=== PATIENT | male | born 1950 | race Caucasian/White ===

== ENCOUNTER 2024-03-22 10:29 | Outpatient (CLI) | payer MEDICARE, OTHER, SELFPAY ==
--- NOTE | ~2024-03-22 | PE_ITS ---
EXAMINATION: PET_PETPSMAST_PT DATE: 03/22/2024 13:16 INDICATION: Malignant neoplasm of the prostate TECHNIQUE: 5.337 mCi of Locametz Ga-68([id number]) was administered i.v. Low dose computed patricia ography (CT) images were acquired from the base of the brain to the base of the brain to the proximal thighs for attenuation correction and anatomic localization. Positron emission tomography (PET) imag es were acquired in the same distribution beginning 91 minutes after injection. Images including fuse d PET/CT images were reconstructed in axial, coronal, and sagittal planes. Automated exposure control technique was employed. The dose-length product was 1082.73mGy-cm. COMPARISON: None FINDINGS: Head/neck: Typical pattern of symmetric physiologic increased activity in the lacrimal, parotid and submandibula r glands as well as along the mucosa of the nasal and oral cavities, pharynx and hypopharynx. No path ologically enlarged cervical lymphadenopathy or suspicious foci of increased uptake in the visualized head or neck. Chest: There is dependent atelectasis in the bilateral lower lobes. No suspicious pulmonary nodules, pneumon ia, pulmonary edema or pleural effusion. Heart size is normal. Small pericardial effusion. Minimal at herosclerotic coronary artery calcification. Thoracic aorta is normal in caliber. No pathologically e nlarged or PSMA avid thoracic lymphadenopathy. Abdomen/pelvis/proximal thighs: Physiologic renal accumulation and excretion of activity in the kidneys, bladder and along portions o f ureters. 4.8 cm photopenic low-attenuation left renal cyst. There is heterogeneous mild uptake in t he prostate with maximal SUV of 4.4 likely representing the reported biopsy-proven primary prostate c ancer. Normal degree and slightly heterogenous pattern of increased uptake throughout the liver and s pleen without radiologic correlate or dominant PSMA avid lesion. The gallbladder, pancreas and bilate ral adrenal glands are normal. Moderate uptake scattered throughout the bowels with typical duodenal and proximal jejunal predominance and without radiologic correlate, also likely physiologic. No other abnormal foci of increased uptake or pathologically enlarged lymphadenopathy in the abdomen, pelvis or proximal thighs. Musculoskeletal: Thoracic dextrocurvature and kyphosis with chronic anterior wedging at a few mid thoracic vertebral b odies. Moderate cervical and thoracic spondylosis with anterior fusion at T6-T7. Severe lower lumbar spondylosis. No suspicious lytic, blastic or abnormally PSMA avid bone lesions to suggest metastatic disease. IMPRESSION: 1. Mild heterogeneous uptake in the prostate likely corresponding to the reported primary prostate ca ncer. No evident metastatic disease. 2. Small pericardial effusion. Reviewed, dictated and finalized at location A. IMPRESSION: 1. Mild heterogeneous uptake in the prostate likely corresponding to the report ed primary prostate cancer. No evident metastatic disease. 2. Small pericardial effusion.
== END 2024-03-22 10:30 | disposition home or self-care (01) ==
LOC: ANHIMG 10:31
PROVIDERS: PCP Family Medicine; Visit Provider Urology
DX: C61 Malignant neoplasm of prostate (principal); I31.39 Other pericardial effusion (noninflammatory)
CPT/HCPCS: 78815; A9596